=== PATIENT | female | born 1945 | race Caucasian/White ===

== ENCOUNTER 2018-06-05 17:29 | Emergency (ER) | payer OTHER ==
[~2018-06-05] VITALS: Ht 170.2 cm; Wt 75.7 kg
[2018-06-05 17:38] VITALS: BP 196/94
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
[2018-06-05] MEDS ORDERED: HYDROcodone/APAP 5/325MG 1 TAB TABLET PO ONE (18:30)
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
[2018-06-05] MEDS ORDERED: CYCL5TAB PO (18:57)
[2018-06-05] MEDS ORDERED: IBUP-1007 PO (18:57)
== END 2018-06-05 19:32 | disposition home or self-care (01) ==
LOC: ER 17:29
DX: M54.2 Cervicalgia (principal); M47.892 Other spondylosis, cervical region; M79.662 Pain in left lower leg; M25.562 Pain in left knee; I10 Essential (primary) hypertension; V53.5XXA Driver of pick-up truck or van injured in collision with car, pick-up truck or van in traffic accident, initial encounter; Y93.89 Activity, other specified; Y92.410 Unspecified street and highway as the place of occurrence of the external cause; Y99.8 Other external cause status
CPT/HCPCS: 70450; 72125; 73562; 73590; 99284

== ENCOUNTER → 2018-10-31 | Outpatient (CLI) | payer OTHER ==
[~2018-10-31] MED LIST: CYCL5TAB PO; IBUP-1007 PO
--- NOTE | 2018-10-31 16:53 | RAD ---
Examination: EXT NON VASC LTD BILATERAL History: Bilateral palpable abnormalities involving the wrists. Comparison/Correlation: None Findings: Ultrasound of the wrist regions bilaterally was performed at the sites of reported palpable of pneumonia. At the lateral aspect of the right wrist, there is a 1.3 cm x 0.6 cm x 1 cm multi septated collection within the subcutaneous region. Complex cystic structure at the dorsal aspect of the wrist medially is also present measuring 1.8 cm x 1.8 cm x 0.8 cm. Significant thickly septated compartments noted. Cystic components noted. The lateral aspect of the left wrist, there is a 1 cm x 1.3 cm x 0.5 cm complex cystic structure. Additional complex thick-walled tubular cystic structure involving this region slightly more medially is identified measuring 2.6 cm x 1.3 cm x 0.3 cm. No flow identified within the cystic structures. Palpable abnormality at the dorsal aspect of the left hand centrally within the breast corresponds with bony structures. Impression: Multiple complex cystic structures about the wrist within subcutaneous distribution. No flow to suggest that these are vascular in origin. Electronically signed by: Aroldo Cantrell MD (10/31/2018 4:50 PM) [facility]
== END | disposition home or self-care (01) ==
LOC: US 15:12
PROVIDERS: ATTEND Nurse Practitioner Family
DX: R22.33 Localized swelling, mass and lump, upper limb, bilateral (principal)
CPT/HCPCS: 76882

== ENCOUNTER → 2020-10-15 | Outpatient (CLI) | payer MEDICARE ==
[2020-07-20 14:56] VITALS: BP 124/70
[~2020-10-15] MED LIST changes: +AMLO-186 PO; +ATOR40TA59 PO; +DOXY100T PO; +LEVO75TA5 PO; +LISI40TA6 PO; +METO-247 PO; +OXYB5TAB10 PO; +PANT40TA77 PO; +PRED-220 PO
--- NOTE | 2020-10-15 12:43 | KCIC ---
DXA BONE DENSITY AXIAL History: Reason: BONE DISORDER, POST MENOPAUSAL Comparison: None. TECHNIQUE: Dual energy x-ray absorptiometry of the lumbar spine and the left hip was performed. T-sco re of average bone mineral density based was calculated based on standard deviations above or below t he expected young adult normal value. Diagnostic definitions were established by the [employer] anization. FINDINGS: The average bone mineral density associated with L1-L4 is 1.195 g/cm^2, corresponding with a T-score of 1.3. The average total bone mineral density associated with the left hip is 0.825 g/cm^2, corresponding wi th a T-score of 1.0. Refer to the worksheets for full detail. IMPRESSION: 1. Normal. Average bone mineral density yields a T-score of -1.0 or greater. Fracture risk is low. Electronically signed by: Daniel Alford MD (10/15/2020 12:40 PM) [facility] Custom Field 1
== END ==
LOC: KCIC DEXA 10:03
PROVIDERS: ATTEND Family Medicine
DX: M85.88 Other specified disorders of bone density and structure, other site (principal)
CPT/HCPCS: 77080